=== PATIENT | female | born 1990 ===

== ENCOUNTER 2021-07-13 14:16 | Outpatient (CLI) | payer OTHER | END 2021-07-13 14:17 | disposition home or self-care (01) | LOC: TBSIIMAG 14:16 | PROVIDERS: ATTEND Neurological Surgery | DX: S12.600A Unspecified displaced fracture of seventh cervical vertebra, initial encounter for closed fracture (principal); M54.2 Cervicalgia; M47.812 Spondylosis without myelopathy or radiculopathy, cervical region; M48.02 Spinal stenosis, cervical region | CPT/HCPCS: 72141 ==